=== PATIENT | female | born 2000 | race Two or more races ===

== ENCOUNTER 2024-03-31 13:05 | Emergency (ER) | payer OTHER ==
[~2024-03-31] VITALS: Ht 167.6 cm; Wt 52.3 kg
[2024-03-31] MEDS ORDERED: BENZ100C97 PO (14:53)
[2024-03-31] MEDS ORDERED: ACET500T58 PO (14:53)
[2024-03-31] MEDS ORDERED: AUG875T PO (14:53)
[2024-03-31] MEDS ORDERED: IBUP-1454 PO (14:53)
[2024-03-31] MEDS ORDERED: PROM1SOL4 PO (14:53)
[2024-03-31 15:34] VITALS: BP 124/74; PULSE 91; RESP 16; TEMP 98.7; O2SAT 97
== END 2024-03-31 15:36 | disposition home or self-care (01) ==
LOC: ER 13:05
DX: B34.9 Viral infection, unspecified (principal); H61.20 Impacted cerumen, unspecified ear